=== PATIENT | male | born 1980 | race Caucasian/White ===

== ENCOUNTER 2019-12-10 13:56 | Emergency (ER) | payer BC ==
[2019-12-10] MEDS ORDERED: Adacel (T-DAP) 0.5 ML SYRINGE ONE (14:11)
== END 2019-12-10 14:25 | disposition home or self-care (01) ==
LOC: MADERS 13:56
DX: S01.01XA Laceration without foreign body of scalp, initial encounter (principal); E78.00 Pure hypercholesterolemia, unspecified; W22.8XXA Striking against or struck by other objects, initial encounter
CPT/HCPCS: 12002; 90471; 90715

== ENCOUNTER 2019-12-18 18:10 | Emergency (ER) | payer BC | END 2019-12-18 18:30 | disposition home or self-care (01) | LOC: MADERS 18:10 | DX: S01.01XD Laceration without foreign body of scalp, subsequent encounter (principal); E78.00 Pure hypercholesterolemia, unspecified ==

== ENCOUNTER 2022-05-13 00:16 | Emergency (ER) | payer BC ==
[2022-05-13] MEDS ORDERED: Morphine 4 MG/ML VIAL ONE ×2 (00:36→04:32)
[2022-05-13] MEDS ORDERED: Sodium Chloride 0.9% 1,000 ML ONE ×2 (00:36→01:39)
[2022-05-13] MEDS ORDERED: Ondansetron PF 4 MG/2 ML Vial ONE ×2 (00:36→02:09)
[2022-05-13 00:53] LABS: #Basophils 0.2 thou/uL (0.0-0.2); #Eosinphils 0.4 thou/uL (0.0-0.7); #Lymphocytes 2.9 thou/uL (1.20-3.40); #Monocytes 1.4 thou/uL (0.11-0.59); #Neutrophils 9.6 thou/uL (1.40-6.50); %Basophils 1.5 % (0.0-1.0); %Eosinophils 2.8 % (0.0-10.0); %Lymphocytes 19.8 % (21.0-51.0); %Monocytes 9.3 % (0.0-10.0); %Neutrophils 66.6 % (42.0-75.0); Hemoglobin 14.7 g/dL (14.0-18.0); Mean Corpuscular HGB CONC 33.8 g/dL (32.0-36.0); Mean Corpuscular Volume 88.9 fl (78.0-98.0); Mean Platelet Volume 9.7 fL (7.4-10.4); Platelet Count 290 10x3/uL (130-400); RBC Distribution Width 11.2 % (11.5-14.5); White Blood Cell (WBC) Count 14.5 10x3/uL (4.8-10.8)
[2022-05-13] MEDS ORDERED: Diazepam 10 MG/2 ML SYRINGE ONE ×2 (01:01→03:43)
[2022-05-13] MEDS ORDERED: Fentanyl 100 MCG/2 ML VIAL ONE (01:06)
[2022-05-13 01:07] LABS: ALT (SGPT) 45 U/L (8-55); AST (SGOT) 20 U/L (5-34); Albumin 4.8 g/dL (3.5-5.0); Alkaline Phosphatase 64 U/L (40-110); Anion Gap 16 mmol/L (10-20); BUN (Urea Nitrogen) 12 mg/dL (8.9-20.6); Bilirubin, Total 0.5 mg/dL (0.2-1.2); Calc. Creatinine Clearance 0 mL/min (70-130); Carbon Dioxide 28 mmol/L (22-29); Chloride 98 mmol/L (98-107); Estimated GFR 99; Globulin 2.7 g/dL (2.4-3.5); Glucose 109 mg/dL (70-105); Lipase 26 U/L (8-78); Potassium 4.1 mmol/L (3.5-5.1); Protein, Total 7.5 g/dL (6.0-8.3); Sodium 138 mmol/L (136-145)
[2022-05-13] MEDS ORDERED: Mag-Al Plus 1200 MG/1200 MG/120 MG/30 ML UDCUP ONE (01:38)
[2022-05-13] MEDS ORDERED: Lidocaine Viscous Sol 2% 15 ml UD Cup ONE (01:38)
[2022-05-13] MEDS ORDERED: Famotidine/PF 20 mg/2ml Vial ONE (02:56)
[2022-05-13 03:23] LABS: Amphetamine Not Detected (NotDetected); Barbiturates Screen Not Detected (NotDetected); Benzodiazepine Screen Not Detected (NotDetected); Cocaine Metabolite Screen Not Detected (NotDetected); Medtox Control Line Valid? VALID (VALID); Methadone Not Detected (NotDetected); Methamphetamine Not Detected (NotDetected); Opiate Screen Detected (NotDetected); Oxycodone Screen Not Detected (NotDetected); Phencyclidine (PCP) Not Detected (NotDetected); THC/Cannabinoid Screen Not Detected (NotDetected); Tricyclic Screen Not Detected (NotDetected)
[2022-05-13 03:24] LABS: Acetaminophen Less than 10.0 mcg/mL (10.0-30.0); Alcohol Less than 10 mg/dL (Less than 10); Salicylate Less than 8.0 mg/dL (15.0-30.0)
[2022-05-13 03:25] LABS: Bilirubin Negative (Negative); Blood, Urine Negative (Negative); Clarity Clear (Clear); Glucose, Urine (Dipstick) Negative (Negative); Ketone, Urine Negative (Negative); Leukocyte Negative (Negative); Nitrite Negative (Negative); Protein, Urine (Dipstick) Negative (Neg-Trace); Specific Gravity, Urine 1.015 (1.005-1.030); Urobilinogen 0.2 mg/dL (Less than 2)
== END 2022-05-13 04:59 | disposition short-term general hospital (02) ==
LOC: MADERS 00:16
DX: G89.18 Other acute postprocedural pain (principal); R10.9 Unspecified abdominal pain; K21.9 Gastro-esophageal reflux disease without esophagitis; E78.00 Pure hypercholesterolemia, unspecified; Z79.899 Other long term (current) drug therapy
CPT/HCPCS: 71045; 74177; 80053; 80306; 80307; 81003; 83605; 83690; 83735; 83880; 84484; 85025; 87040; 96374; 96375; 96376; J2270; J2405; J3010; J3360; J7050; S0028